=== PATIENT | male | born 1990 | race Two or more races ===

== ENCOUNTER 2018-03-17 22:23 | Emergency (ER) | payer SELFPAY ==
[~2018-03-17] VITALS: Ht 170.2 cm; Wt 77.1 kg
--- NOTE | 2018-03-17 23:39 | RAD ---
Indication:TWISTED RIGHT ANKLE, SWELLING AT LATERAL MALLEOLUS TECHNIQUE: 3 views of the right ankle COMPARISON:None FINDINGS/ impression: No acute fracture or dislocation. Ankle mortise is intact. Soft tissue swelling overlying lateral malleolus. No degenerative changes. Electronically signed by: Adam Kong DO (03/17/2018 11:34 PM) [facility]
[2018-03-17] MEDS ORDERED: ACETAMINOPHEN 500 MG TABLET PO ONE ×2 (23:45→23:54)
[2018-03-17] MEDS ORDERED: IBUPROFEN 600 MG TABLET. PO ONE ×2 (23:45→23:55)
--- NOTE | 2018-03-17 23:46 | PHYS DOC ---
Past History Past Medical History: No Pertinent History Past Surgical History: Appendectomy Alcohol Use: None Drug Use: None Adult General Chief Complaint Chief Complaint: ANKLE PROBLEM HPI HPI Patient is a 28 year old male who presents with complaint of right ankle pain. Patient states that 4 days ago he accidentally rolled his foot inward after slipping on ice while walking outside. The patient states immediately after he was able to ambulate, but started to have worsening pain and swelling to the ankle. Patient states that over the past 2 days he has had worsening pain with ambulation. States that while standing still he is able to bear weight, however he is unable to put full weight on his right foot while walking due to pain in the ankle. Denies any other injuries. Patient has taken no medications for symptoms but has been elevating and icing his right ankle. Due to continued swelling he came to the emergency department for further evaluation as he is concerned he may have broken a bone in his ankle. Review of Systems Review of Systems Constitutional: Denies fever or chills [] Eyes: Denies change in visual acuity, redness, or eye pain [] HENT: Denies nasal congestion or sore throat [] Respiratory: Denies cough or shortness of breath [] Cardiovascular: Denies chest pain or edema[] GI: Denies abdominal pain, nausea, vomiting, bloody stools or diarrhea [] : Denies dysuria or hematuria [] Musculoskeletal: Right ankle pain and swelling[] Integument: Denies rash or skin lesions [] Neurologic: Denies headache, focal weakness or sensory changes [] All other systems were reviewed and found to be within normal limits, except as documented in this note. Allergies Allergies Allergies Coded Allergies Type Severity Reaction Last Updated Verified No Known Allergies Allergy Unknown 03/17/18 Yes Physical Exam Physical Exam Constitutional: Alert, afebrile, no acute distress. [] HENT: Normocephalic, atraumatic, bilateral external ears normal, oropharynx moist, no oral exudates, nose normal. [] Eyes: PERRLA, EOMI, conjunctiva normal, no discharge. [] Neck: Normal range of motion, no tenderness, supple, no stridor. [] Cardiovascular:Heart rate regular rhythm, no murmur [] Lungs & Thorax: Bilateral breath sounds clear to auscultation [] Abdomen: Bowel sounds normal, soft, no tenderness, no masses, no pulsatile masses. [] Skin: Warm, dry, no erythema, no rash. [] Back: No tenderness, no CVA tenderness. [] Extremities: Soft tissue swelling along right lateral malleolus, tenderness to palpation along right lateral joint space, negative squeeze test, no joint instability with anterior drawer test of right ankle. [] Neurologic: Alert and oriented X 3, normal motor function, normal sensory function, no focal deficits noted. [] Current Patient Data Vital Signs Vital Signs Date Time Temp Pulse Resp B/P (MAP) Pulse Ox O2 Delivery O2 Flow Rate FiO2 03/17/18 23:15 98.3 79 20 99 Room Air Lab Results Not performed EKG EKG Not performed[] Radiology/Procedures Radiology/Procedures [address] [address] IMAGING REPORT Signed PATIENT: LUC LOPEZ ACCOUNT: [id number] : 1990 LOCATION: ER AGE: 28 SEX: M EXAM STATUS: REG ER ORD. PHYSICIAN: TANMAY ROSADO MD REASON: right ankle injury PROCEDURE: ANKLE RIGHT 3V Indication:TWISTED RIGHT ANKLE, SWELLING AT LATERAL MALLEOLUS TECHNIQUE: 3 views of the right ankle COMPARISON:None FINDINGS/ impression: No acute fracture or dislocation. Ankle mortise is intact. Soft tissue swelling overlying lateral malleolus. No degenerative changes. Electronically signed by: Shahab Starkey DO (03/17/2018 11:34 PM) [facility] DICTATED AND SIGNED BY: SHAHAB STARKEY DO DATE: 03/17/18 2333 CC: TANMAY ROSADO MD; PCP,NO ~ [] Course & Med Decision Making Course & Med Decision Making Pertinent Labs and Imaging studies reviewed. (See chart for details) X-rays were negative for fracture. Symptoms appear consistent with right ankle sprain. Parag wrap and air splint applied to the right ankle. Patient advised to take ibuprofen and Tylenol at home as needed for symptoms with recommended follow-up in one week with primary doctor if symptoms are not improving. Advised return to emergency department for any worsening symptoms. Patient was understanding and in agreement with treatment plan. Dragon Disclaimer Dragon Disclaimer This electronic medical record was generated, in whole or in part, using a voice recognition dictation system. Departure Departure: Impression: Primary Impression: Right ankle sprain Disposition: HOME, SELF-CARE Condition: IMPROVED Referrals: [facility] (PCP) Patient Instructions: Ankle Sprain, RICE - Routine Care for Injuries Additional Instructions: You may take 400-600 mg of ibuprofen by mouth every 6 hours as needed for pain. He may also take 1000 mg of Tylenol every 6 hours as needed for pain. Follow- up with your primary doctor in 1 week for reevaluation if symptoms are not improving. Return to the emergency department for any worsening symptoms. Problem Qualifiers Primary Impression: Right ankle sprain Encounter type: initial encounter Involved ligament of ankle: anterior talofibular ligament Qualified Codes: S93.491A - Sprain of other ligament of right ankle, initial encounter TANMAY ROSADO MD Mar 17, 2018 23:46
[2018-03-18 00:05] VITALS: BP 110/77
== END 2018-03-18 00:16 | disposition home or self-care (01) ==
LOC: ER 22:23
DX: S93.491A Sprain of other ligament of right ankle, initial encounter (principal); X50.1XXA Overexertion from prolonged static or awkward postures, initial encounter; Y93.01 Activity, walking, marching and hiking; Y92.89 Other specified places as the place of occurrence of the external cause; Y99.8 Other external cause status
CPT/HCPCS: 73610; 99283; L4350